=== PATIENT | male | born 1990 | race Caucasian/White ===

== ENCOUNTER → 2020-09-12 | Outpatient (CLI) | payer BC | LOC: LAB 16:48 | DX: R19.7 Diarrhea, unspecified (principal); R10.32 Left lower quadrant pain | CPT/HCPCS: 93005 ==

== ENCOUNTER → 2020-09-13 | Outpatient (CLI) | payer BC | LOC: RT 14:12 | DX: R19.7 Diarrhea, unspecified (principal); R10.32 Left lower quadrant pain | CPT/HCPCS: 36415; 82270; 87045; 87046; 93005 ==